=== PATIENT | male | born 2005 | race Hispanic/Latino ===

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

== ENCOUNTER 2024-01-09 07:42 | Emergency (ER) | payer SELFPAY ==
[2024-01-09] MEDS ORDERED: NA CHLORIDE 0.9% 1,000 ML ONE ×2 (07:54→09:40)
[2024-01-09] MEDS ORDERED: ONDANSETRON 4 MG/2 ML VIAL ONE (07:54)
[2024-01-09] MEDS ORDERED: FAMOTIDINE 20 MG/2 ML VIAL IV ONE (07:54)
[2024-01-09 08:46] LABS: Absolute Eosinophils 0.1 K/uL (0-0.5); Absolute Lymphocytes (CBC) 1.2 K/uL (0.7-4.9); Absolute Monocytes 0.2 K/uL (0.1-1.3); Absolute Neutrophil 2.1 K/uL (1.8-8.0); Basophils % 0.9 % (0-1.3); Eosinophils % 1.7 % (0-4.4); Hematocrit 42.7 % (39.6-49.0); Hemoglobin 14.7 g/dL (13.6-17.9); Lymphocytes % 33.4 % (15.3-44.8); MCHC 34.5 g/dL (32.0-36.0); MCV 89.9 fL (80-100); MPV 8.1 fL (7.6-11.3); Monocytes % 5.8 % (3.3-12.3); Neutrophils % 58.2 % (41.7-73.7); Nucleated Red Blood Cells % 0.1 % (0-0); Platelets 272 thou/uL (152-406); RBC Red Blood Cell Count 4.74 M/uL (4.33-5.43); Red Cell Distribution Width 13.2 % (12.1-15.2); Specific Gravity 1.026 (1.005-1.030); Sqamous Epithelial <5 /HPF (None Seen); Urine Bacteria None Seen /HPF (<20); Urine Bilirubin NEGATIVE (Negative); Urine Blood Negative (Negative); Urine Clarity Clear (Clear); Urine Color Light-Yellow (Yellow); Urine Culture Reflex Order NOT NEEDED; Urine Glucose NEGATIVE (Negative); Urine Ketones NEGATIVE (Negative); Urine Microscopic Reflex YN ORDER UMIC; Urine Nitrite NEGATIVE (Negative); Urine Protein NEGATIVE (Negative); Urine RBC <5 /HPF (None Seen); Urine Urobilinogen Normal (Normal); Urine WBC <5 /HPF (<5); Urine pH 7.5 (5.0-7.0)
[2024-01-09 08:57] LABS: Albumin 4.1 g/dL (3.4-5.0); Albumin/Globulin Ratio 1.2 (1.1-1.8); Anion Gap 11.1 mEq/L (5.0-15.0); Bilirubin Total 0.6 mg/dL (0.2-1.0); Globulin 3.5 g/dL (2.3-3.5); Potassium 4.1 mEq/L (3.5-5.1); Protein, Total 7.6 g/dL (6.4-8.2)
--- NOTE | 2024-01-09 09:53 | RAD REPORT ---
EXAMINATION: US Abdomen Exam Limited CLINICAL HISTORY: [facility] MAIN Y ABD PAIN Bed Name: 7 COMPARISON: None. TECHNIQUE: Limited upper abdominal grayscale and color flow sonographic images. FINDINGS: Gallbladder: Normal. No gallstones. Bile ducts: No intrahepatic or extrahepatic biliary dilatation. Common bile duct measures 2 mm. Liver: Visualized portions of the liver demonstrate normal echogenicity with no suspicious findings. Fluid: No ascites. IMPRESSION: No abnormalities on right upper quadrant ultrasound.
--- NOTE | 2024-01-09 10:29 | EDPHYS ---
Physician Documentation [facility] Name: Tal Bejarano Jr Age: 19 yrs Sex: Male : 2005 Arrival Date: 01/09/2024 Time: 07:42 Bed 7 Private MD: KAILA Physician Marek Henley HPI: 01/08 08:14 This 19 yrs old Male presents to ER via Ambulatory with complaints of merlin Nausea/Vomiting, Abdominal Pain. 08:14 The patient presents to the emergency department with nausea, vomiting, diarrhea, merlin abdominal pain, of the right upper quadrant and left upper quadrant. Onset: The symptoms/episode began/occurred 2 day(s) ago. Possible causes: unknown. The symptoms are aggravated by nothing. The symptoms are alleviated by nothing. Associated signs and symptoms: The patient has no apparent associated signs or symptoms. Severity of symptoms: At their worst the symptoms were moderate in the emergency department the symptoms have improved moderately. The patient has not experienced similar symptoms in the past. Historical: - Allergies: 07:59 No Known Allergies; bp - PMHx: 07:59 Asthma; bp - Immunization history:: Adult Immunizations up to date. - Infectious Disease History:: Denies. - Social history:: Smoking status: Patient denies any tobacco usage or history of. ROS: 08:15 Constitutional: Negative for fever, chills, and weight loss, Eyes: Negative for injury, merlin pain, redness, and discharge, ENT: Negative for injury, pain, and discharge, Neck: Negative for injury, pain, and swelling, Cardiovascular: Negative for chest pain, palpitations, and edema, Respiratory: Negative for shortness of breath, cough, wheezing, and pleuritic chest pain, Back: Negative for injury and pain, : Negative for injury, bleeding, discharge, and swelling, MS/Extremity: Negative for injury and deformity, Skin: Negative for injury, rash, and discoloration, Neuro: Negative for headache, weakness, numbness, tingling, and seizure, Psych: Negative for depression, anxiety, suicide ideation, homicidal ideation, and hallucinations, Allergy/Immunology: Negative for hives, rash, and allergies, Endocrine: Negative for neck swelling, polydipsia, polyuria, polyphagia, and marked weight changes, Hematologic/Lymphatic: Negative for swollen nodes, abnormal bleeding, and unusual bruising, 08:15 Abdomen/GI: Positive for abdominal pain, Exam: 08:15 Constitutional: This is a well developed, well nourished patient who is awake, alert, merlin and in no acute distress. Head/Face: Normocephalic, atraumatic. Eyes: Pupils equal round and reactive to light, extra-ocular motions intact. Lids and lashes normal. Conjunctiva and sclera are non-icteric and not injected. Cornea within normal limits. Periorbital areas with no swelling, redness, or edema. ENT: Nares patent. No nasal discharge, no septal abnormalities noted. Tympanic membranes are normal and external auditory canals are clear. Oropharynx with no redness, swelling, or masses, exudates, or evidence of obstruction, uvula midline. Mucous membranes moist. Neck: Trachea midline, no thyromegaly or masses palpated, and no cervical lymphadenopathy. Supple, full range of motion without nuchal rigidity, or vertebral point tenderness. No Meningismus. Chest/axilla: Normal chest wall appearance and motion. Nontender with no deformity. No lesions are appreciated. Cardiovascular: Regular rate and rhythm with a normal S1 and S2. No gallops, murmurs, or rubs. Normal PMI, no JVD. No pulse deficits. Respiratory: Lungs have equal breath sounds bilaterally, clear to auscultation and percussion. No rales, rhonchi or wheezes noted. No increased work of breathing, no retractions or nasal flaring. Abdomen/GI: Soft, non-tender, with normal bowel sounds. No distension or tympany. No guarding or rebound. No evidence of tenderness throughout. Back: No spinal tenderness. No costovertebral tenderness. Full range of motion. Male : Normal genitalia with no discharge or lesions. Skin: Warm, dry with normal turgor. Normal color with no rashes, no lesions, and no evidence of cellulitis. MS/ Extremity: Pulses equal, no cyanosis. Neurovascular intact. Full, normal range of motion. Neuro: Awake and alert, GCS 15, oriented to person, place, time, and situation. Cranial nerves II-XII grossly intact. Motor strength 5/5 in all extremities. Sensory grossly intact. Cerebellar exam normal. Normal gait. Psych: Awake, alert, with orientation to person, place and time. Behavior, mood, and affect are within normal limits. Vital Signs: 07:58 BP 135 / 72; Pulse 64; Resp 16; Temp 98; Pulse Ox 99% ; Weight 68.04 kg; Height 5 ft. 9 bp in. ; 10:47 BP 121 / 67; Pulse 71; Resp 16; Pulse Ox 99% ; bp 07:58 Body Mass Index 22.15 (68.04 kg, 175.26 cm) - Percentile 38.3 % bp MDM: 07:47 Medical Screening Exam initiated merlin 07:48 Medical Screening Exam initiated merlin 08:16 Differential diagnosis: Nonspecific abd pain, gastritis, pancreatitis, appendicitis, merlin diverticulitis, viral gastroenteritis, gastroenteritis, appendicitis, cholecystitis, Cholelithiasis, diverticulitis, gastritis, gastroesophageal reflux disease, Hepatitis. Data reviewed: vital signs, nurses notes, lab test result(s), radiologic studies. Consideration of Admission/Observation Escalation of care including admission/observation considered. I considered the following discharge prescriptions or medication management in the emergency department Medications were administered in the Emergency Department. See MAR. Test considered but Not performed: CT: no ct abd/pel. Care significantly affected by the following chronic conditions: asthma. 01/08 07:48 Order name: CBC with Diff; Complete Time: 09:17 [facility] 01/08 07:48 Order name: CMP; Complete Time: 09:17 [facility] 01/08 07:48 Order name: Lipase; Complete Time: 09:17 [facility] 01/08 07:48 Order name: Urinalysis w/ reflexes; Complete Time: 09:17 [facility] 01/08 09:17 Order name: US Abdomen Limited; Complete Time: 10:29 [facility] 01/08 07:48 Order name: IV Saline Lock; Complete Time: 08:18 [facility] 01/08 07:48 Order name: Labs collected and sent; Complete Time: 08:18 [facility] Administered Medications: 08:15 Drug: Famotidine IVP 20 mg IVP once; dilute with 10 mL 0.9% NaCl; give over 2 minutes bp Route: IVP; Site: right hand; 09:43 Follow up: Response: No adverse reaction bp 08:15 Drug: Ondansetron IVP 4 mg IVP once; over 2 minutes Route: IVP; Site: right hand; bp 09:43 Follow up: Response: No adverse reaction bp 08:15 Drug: NS 0.9% IV 1000 ml IV at 1 bolus Per protocol; to be given as a bolus over 60 bp minutes Route: IV; Rate: 1 bolus; Site: right hand; 09:43 Follow up: IV Status: Completed infusion; IV Intake: 1000ml bp 09:43 Drug: NS 0.9% IV 1000 ml IV at 1000 ml once; to be given as a bolus over 60 minutes bp Route: IV; Rate: 1000 ml; Site: right hand; 10:47 Follow up: IV Status: Completed infusion bp Disposition Summary: 01/09/24 10:29 Discharge Ordered Notes: Location: Home merlin Problem: new merlin Symptoms: have improved merlin Condition: Stable merlin Diagnosis - Nausea with vomiting, unspecified merlin - Diarrhea, unspecified merlin - Abdominal pain, unspecified merlin Followup: merlin - With: Private Physician - When: 2 - 3 days - Reason: Recheck today's complaints, Continuance of care, Re-evaluation by your physician Discharge Instructions: - Discharge Summary Sheet merlin - Abdominal Pain, Adult merlin - Food Choices to Help Relieve Diarrhea, Adult merlin - Diarrhea, Adult merlin - Nausea and Vomiting, Adult merlin - Nausea, Adult merlin - Nausea and Vomiting, Adult, [id number] merlin Forms: - Medication Reconciliation Form merlin - Antibiotic Education merlin - Prescription Opioid Use merlin - Patient Portal Instructions merlin - Leadership Thank You Letter merlin - Work release form ss Prescriptions: - ondansetron 4 mg Oral Tablet,disintegrating - take 1 tablet ORAL route every 6-8 hours for 5 days as needed for nausea and merlin vomiting; 20 tablet; Refills: 0, Product Selection Permitted Signatures: Dispatcher [employer] Marek Shelton MD MD cha Peltier, Brian, RN RN bp
--- NOTE | 2024-01-09 10:29 | ER ---
Nurse's Notes [facility] Name: Tal Bejarano Jr Age: 19 yrs Sex: Male : 2005 Arrival Date: 01/09/2024 Time: 07:42 Bed 7 Private MD: Diagnosis: Nausea with vomiting, unspecified;Diarrhea, unspecified;Abdominal pain, unspecified Presentation: 01/08 07:58 Chief complaint: Patient states: NAUSEA, VOMITING, DIARRHEA AND RUQ PAIN x3 DAYS. bp Coronavirus screen: At this time, the client does not indicate any symptoms associated with coronavirus-19. Ebola Screen: No symptoms or risks identified at this time. Initial Sepsis Screen: Does the patient meet any 2 criteria? No. Patient's initial sepsis screen is negative. Does the patient have a suspected source of infection? No. Patient's initial sepsis screen is negative. Risk Assessment: Do you want to hurt yourself or someone else? Patient reports no desire to harm self or others. Onset of symptoms is unknown. 07:58 Method Of Arrival: Ambulatory bp 07:58 Acuity: PRAKASH 3 bp Triage Assessment: 07:59 General: Appears in no apparent distress. uncomfortable, Behavior is calm, cooperative, bp appropriate for age. Pain: Complains of pain in right upper quadrant. EENT: No deficits noted. Neuro: No deficits noted. Cardiovascular: No deficits noted. Respiratory: No deficits noted. GI: Reports upper abdominal pain, diarrhea, nausea, vomiting. : No signs and/or symptoms were reported regarding the genitourinary system. Derm: No deficits noted. Musculoskeletal: No deficits noted. Historical: - Allergies: 07:59 No Known Allergies; bp - PMHx: 07:59 Asthma; bp - Immunization history:: Adult Immunizations up to date. - Infectious Disease History:: Denies. - Social history:: Smoking status: Patient denies any tobacco usage or history of. Screenin:00 [facility] ED Fall Risk Assessment (Adult) History of falling in the last 3 months, bp including since admission No falls in past 3 months (0 pts) Confusion or Disorientation No (0 pts) Intoxicated or Sedated No (0 pts) Impaired Gait No (0 pts) Mobility Assist Device Used No (0 pt) Altered Elimination No (0 pt) Score/Fall Risk Level 0 - 2 = Low Risk. Abuse screen: Denies threats or abuse. Denies injuries from another. Nutritional screening: No deficits noted. Tuberculosis screening: No symptoms or risk factors identified. Assessment: 08:00 General: Appears in no apparent distress. Behavior is appropriate for age. GI: Abdomen bp is non-distended. Vital Signs: 07:58 BP 135 / 72; Pulse 64; Resp 16; Temp 98; Pulse Ox 99% ; Weight 68.04 kg; Height 5 ft. 9 bp in. ; 10:47 BP 121 / 67; Pulse 71; Resp 16; Pulse Ox 99% ; bp 07:58 Body Mass Index 22.15 (68.04 kg, 175.26 cm) - Percentile 38.3 % bp ED Course: 07:46 Patient arrived in ED. sj2 07:47 Marek Henley MD is Attending Physician. merlin 07:48 Sher Zambrano, HOLLY is Primary Nurse. bp 07:59 Triage completed. bp 07:59 Arm band placed on. bp 08:00 Patient has correct armband on for positive identification. bp 08:07 Initial lab(s) drawn, by me, sent to lab. Inserted saline lock: 20 gauge in right hand, ph using aseptic technique. Blood collected. Flushed with 10 mL NS. 08:18 CBC with Diff Sent. ph 08:18 CMP Sent. ph 08:18 Lipase Sent. ph 09:43 US Abdomen Limited Sent. bp 09:46 US Abdomen Limited In Process Unspecified. EDMS 10:47 No provider procedures requiring assistance completed. IV discontinued, intact, bp bleeding controlled, No redness/swelling at site. Pressure dressing applied. Administered Medications: 08:15 Drug: Famotidine IVP 20 mg IVP once; dilute with 10 mL 0.9% NaCl; give over 2 minutes bp Route: IVP; Site: right hand; 09:43 Follow up: Response: No adverse reaction bp 08:15 Drug: Ondansetron IVP 4 mg IVP once; over 2 minutes Route: IVP; Site: right hand; bp 09:43 Follow up: Response: No adverse reaction bp 08:15 Drug: NS 0.9% IV 1000 ml IV at 1 bolus Per protocol; to be given as a bolus over 60 bp minutes Route: IV; Rate: 1 bolus; Site: right hand; 09:43 Follow up: IV Status: Completed infusion; IV Intake: 1000ml bp 09:43 Drug: NS 0.9% IV 1000 ml IV at 1000 ml once; to be given as a bolus over 60 minutes bp Route: IV; Rate: 1000 ml; Site: right hand; 10:47 Follow up: IV Status: Completed infusion bp Medication: 08:00 VIS not applicable for this client. bp Intake: 09:43 IV: 1000ml; Total: 1000ml. bp Outcome: 10:29 Discharge ordered by . merlin 10:47 Discharged to home ambulatory, with family, bp 10:47 Condition: stable 10:47 Discharge instructions given to patient, Instructed on discharge instructions, follow up and referral plans. medication usage, Demonstrated understanding of instructions, follow-up care, medications, Prescriptions given X 1, 10:48 Patient left the ED. bp Signatures: Dispatcher [employer] EDMarek Bello MD MD cha Hall, Patricia, RN RN Sher Funez, RN RN Tatiana Conroy 2
[2024-01-09 20:29] VITALS: TEMP 98; O2SAT 99
[2024-01-09 20:35] VITALS: BP 121/67
== END 2024-01-09 10:48 | disposition home or self-care (01) ==
LOC: ER 07:42
DX: R11.2 Nausea with vomiting, unspecified (principal); R19.7 Diarrhea, unspecified; R10.12 Left upper quadrant pain; R10.11 Right upper quadrant pain
CPT/HCPCS: 36415; 76705; 80053; 81001; 83690; 85025; 96361; 96374; 96375; 99284; J2405; J7030